=== PATIENT | female | born 1995 | race Caucasian/White ===

== ENCOUNTER 2021-02-15 16:35 | Emergency (ER) | payer OTHER, SELFPAY ==
--- NOTE | ~2021-02-15 | CT_ITS ---
EXAMINATION: CT abdomen pelvis wo con DATE: 02/15/2021 23:17 INDICATION: Abdominal pain. Hematuria. TECHNIQUE: Computed tomography (CT) of the abdomen and pelvis was performed without intravenous contr ast. Automated exposure control and iterative reconstruction technique were employed. The dose-length product was 289.01 mGy-cm. COMPARISON: None. FINDINGS: The visualized portions of the lung bases are clear without pneumonia or pleural effusion. The heart size is normal. No pericardial effusion. The liver, gallbladder, spleen, pancreas, adrenal glands, and kidneys are normal. There is no urolithiasis. There are no dilated loops of bowel. The ap pendix is normal. There are no pathologically enlarged lymph nodes. There is no free intraperitoneal fluid. There is thoracolumbar dextroscoliosis. IMPRESSION: 1. No etiology for the patient's symptoms. Reviewed, dictated and finalized at location A. [employer]
[2021-02-15 16:40] VITALS: BP 118/65; PULSE 83; RESP 18; TEMP 36; O2SAT 99
[2021-02-15 20:57] VITALS: BP 137/92; PULSE 77; RESP 18; O2SAT 98
--- NOTE | 2021-02-15 21:12 | ED.ABDPAIN ---
HPI - Abdominal Pain General Chief Complaint: Abdominal Pain Stated Complaint: ABd pain Time Seen by Provider: 02/15/21 20:53 Source: patient History of Present Illness HPI narrative: Patient presents with upper abdominal pain worsening over the past 2 days. Pain is achy, constant, improved with ibuprofen, no radiation. Reports his symptoms are associated with nausea but no vomiting. She also reports diarrhea over this time. She denies any fevers, chills, cough, congestion. She denies urinary symptoms. She initially went to an urgent care but was referred to the ER for further evaluation, denies recent antibiotics denies any sick contacts denies any recent camping trips Review of Systems Review of Systems: CONSTITUTIONAL: Denies fever, chills, or sweats. EYES: Denies visual changes, redness, or discharge. ENT: Denies rhinorrhea, congestion, sore throat, or otalgia. CARDIOVASCULAR: Denies chest pain, palpitations, or edema. RESPIRATORY: Denies cough or dyspnea. GASTROINTESTINAL: Abdominal pain, nausea, diarrhea GENITOURINARY: Denies dysuria or hematuria. SKIN: Denies rash or itching. MUSCULOSKELETAL: Denies back pain, joint pain, or myalgia. NEUROLOGIC: Denies headache, numbness, dizziness, or weakness. PSYCHIATRIC: Denies anxiety or depression. All systems reviewed & are unremarkable except as noted in HPI and below PMFSH Past Medical History Medical History (Updated 02/16/21 @ 00:09 by Berlin Martinez MD) Patient denies significant medical history Social History Social History (Updated 02/15/21 @ 21:14 by Berlin Martinez MD) Substance use: never Exam Narrative: GENERAL: Well-appearing, well-nourished, and in no acute distress. HEAD: Normocephalic, atraumatic. EYES: PERRLA and EOMI. ENT: Nares clear, no rhinorrhea or epistaxis. Mucous membranes moist. NECK: Supple. No masses. No JVD ABDOMEN: Mild tenderness in the epigastric and left upper quadrant no rebound or guarding soft, nondistended. EXTREMITIES: Normal range of motion. No edema. SKIN: Warm, dry, no rash. NEURO: No focal deficits. Alert and oriented x3. PSYCH: Normal mood and affect. Course Reevaluation(s) Reevaluation #1: Patient is resting comfortably symptoms are improving results and plan reviewed with patient. Patient comfortable outpatient plan. Date: 02/16/21 Time: 00:06 Vital Signs Vital signs: Vital Signs Temperature 36.0 C L 02/15/21 16:40 Pulse Rate 83 02/15/21 16:40 Respiratory Rate 18 02/15/21 16:40 Blood Pressure 118/65 02/15/21 16:40 Pulse Oximetry 99 02/15/21 16:40 Temperature 36.7 C 02/16/21 00:54 Pulse Rate 85 02/16/21 00:54 Respiratory Rate 16 02/16/21 00:54 Blood Pressure 118/81 02/16/21 00:54 Pulse Oximetry 100 02/16/21 00:54 MDM - Abdominal Pain MDM Narrative Medical decision making narrative: H&P as above, vss, pt looks clinically well, exam nonacute abdomen, labs with UA having hematuria, imaging obtained after UA findings to rule out stone, additional labs/img considered, symptomatic relief available as needed, on reevaluation pt continues to looks clinically well. With negative work-up symptoms may represent viral process, dns severe sepsis, severe dehydration, perforation, appendicitis, bowel obstruction. plan to tx/monitor as op w/ pcm f/u findings/plan discussed with pt, pt agree/comfortable with plan, return precautions given Lab Data Result diagrams: 02/15/21 21:21 02/15/21 21:20 Labs: Lab Results 02/15/21 02/15/21 02/15/21 Range/Units 20:59 21:20 21:21 WBC 3.9 L (4.5-10.0) K/mm3 RBC 4.38 (4.2-5.4) M/mm3 Hgb 13.8 (12.0-15.0) g/dL Hct 41.4 (37.0-47.0) % MCV 94.5 (80-100) fl MCH 31.5 (26-34) pg MCHC 33.3 (32-36) g/dl RDW 12.5 (11.5-14.5) % Plt Count 258 (150-375) k/mm3 MPV 9.4 (7.4-10.4) fl Immature Gran % (Auto) 0.3 (0-0.5) % Neut % (Auto) 52.5 (45.5-73.1) % Lymph % (Auto) 34.3 (
[2021-02-15 21:30] LABS: Basophils Percent Auto 0.3 % (0.2-1.2); Hematocrit 41.4 % (37.0-47.0); Hemoglobin 13.8 g/dL (12.0-15.0); Immature Granulocyte Absolute 0.01 K/mm3 (0.00-0.031); Immature Granulocyte Percent A 0.3 % (0-0.5); Lymphocytes Absolute Auto 1.33 K/mm3 (0.9-3.2); Lymphocytes Percent Auto 34.3 % (18.3-44.2); Mean Corpuscular HGB Conc 33.3 g/dl (32-36); Mean Corpuscular Hemoglobin 31.5 pg (26-34); Mean Corpuscular Volume 94.5 fl (80-100); Mean Platelet Volume 9.4 fl (7.4-10.4); Monocytes Absolute Auto 0.5 K/mm3 (0.1-0.6); Monocytes Percent Auto 11.6 % (2.6-8.5); Neutrophils Percent Auto 52.5 % (45.5-73.1); Platelet Count Result 258 k/mm3 (150-375); Red Blood Count 4.38 M/mm3 (4.2-5.4); Red Cell Distribution Width 12.5 % (11.5-14.5); White Blood Count 3.9 K/mm3 (4.5-10.0)
[2021-02-15] MEDS: SODIUM CHLORIDE 0.9% IV 1,000 ML 999 ML IV CONT (21:33)
[2021-02-15 21:39] VITALS: BP 126/75; PULSE 90; RESP 16; O2SAT 98
[2021-02-15 21:45] LABS: Add Urine Microscopic? YES; Appearance Urine Cloudy (Clear); Bilirubin Urine Negative (Negative); Blood Urine 3+ (Negative); Color Urine Yellow (Yellow); Glucose Urine UA Negative (Negative); Ketones Urine 1+ mg/dL (Negative); Leukocyte Esterase Ur Negative LEU/UL (Negative); Mucus Urine Moderate /lpf; Nitrate Urine Negative (Negative); Protein Urine 1+ mg/dL (Negative); RBC Urine >75 /hpf (0-2); Specific Grav Ur 1.027 (1.001-1.035); Squamous Epithelial Cell Urine Moderate /hpf (Few); Urobilinogen Urine Negative mg/dL (<2.0); WBC Urine 0-3 /hpf
[2021-02-15 21:46] LABS: Alanine Aminotransferase 25 U/L (4-35); Albumin Level 4.7 g/dL (3.5-5.1); Alkaline Phosphatase 84 U/L (38-126); Anion Gap 15 mmol/L (8-16); Aspartate Amino Transferase 33 U/L (14-36); Bilirubin,Total 0.7 mg/dL (0.2-1.3); Blood Urea Nitrogen 14 mg/dL (7-17); Calcium 9.6 mg/dL (8.4-10.2); Carbon Dioxide 21 mmol/L (22-30); Chloride 105 mmol/L (98-107); Estimated CRCL calculation 85 ml/min; Estimated Glomerular Filt Rate > 60; Glucose 91 mg/dL (65-110); Lipase 63 U/L (23-300); Potassium 3.8 mmol/L (3.4-5.0); Sodium 141 mmol/L (137-145)
[2021-02-16 00:54] VITALS: BP 118/81; PULSE 85; RESP 16; TEMP 36.7; O2SAT 100
== END 2021-02-16 00:56 | disposition home or self-care (01) ==
PROVIDERS: Emergency Provider Emergency Medicine; PCP Nurse Practitioner
DX: R11.0 Nausea (principal); R10.9 Unspecified abdominal pain
CPT/HCPCS: 36415; 74176; 80053; 81001; 81025; 83690; 85025; 96360; 99284; J7030

== ENCOUNTER 2022-01-21 12:58 | Outpatient (CLI) | payer OTHER, SELFPAY ==
[2022-01-25 14:36] LABS: Progesterone 8.8 ng/mL (***)
== END 2022-01-21 12:59 | disposition home or self-care (01) ==
LOC: ANHLAB 13:01
PROVIDERS: PCP Nurse Practitioner; Visit Provider Obstetrics & Gynecology
DX: N93.9 Abnormal uterine and vaginal bleeding, unspecified (principal); N91.2 Amenorrhea, unspecified
CPT/HCPCS: 36415; 84144; 84702; 86850; 86900; 86901

== ENCOUNTER 2022-01-23 17:28 | Outpatient (CLI) | payer OTHER, SELFPAY | END 2022-01-23 17:29 | disposition home or self-care (01) | LOC: ANHLAB 17:31 | PROVIDERS: PCP Nurse Practitioner; Visit Provider Obstetrics & Gynecology | DX: O26.851 Spotting complicating pregnancy, first trimester (principal); Z3A.00 Weeks of gestation of pregnancy not specified | CPT/HCPCS: 36415; 84702 ==

== ENCOUNTER 2022-01-28 17:41 | Outpatient (CLI) | payer OTHER, SELFPAY ==
--- NOTE | ~2022-01-28 | US_ITS ---
EXAMINATION: US OB <=14 wk fetus w TV DATE: 01/28/2022 18:35 INDICATION: Spotting during first trimester TECHNIQUE: Real-time pelvic transabdominal and transvaginal ultrasound was performed. COMPARISON: None. FINDINGS: The uterus measures 8.7 x 4.8 x 6.0 cm. There is an intrauterine gestational sac. A yolk s ac is identified. There is a questionable 4 mm pole.The mean sac diameter measures 2.5 cm, whic h correlates with an estimated gestational age of 7 weeks and 4 day(s) (+/-) 5 day(s). The right ovary measures 3.6 x 2.0 x 2.8 cm. The left ovary measures 3.2 x 2.0 x 2.0 cm. There is nor mal vascular flow in the ovaries. There is no free fluid in the pelvis. IMPRESSION: 1. Intrauterine gestational sac and yolk sac and a possible small pole with an estimated gestat ional age of 7 weeks and 4 day(s) (+/-) 5 day(s) and an estimated delivery date of 09/12/2022 based on mean sac diameter. Reviewed, dictated and finalized at location F. [employer] EXPERT IMPRESSION: 1. Intrauterine gestational sac and yolk sac and a possible small pole wi th an estimated gestational age of 7 weeks and 4 day(s) (+/-) 5 day(s) and an e stimated delivery date of 09/12/2022 based on mean sac diameter.
== END 2022-01-28 17:42 | disposition home or self-care (01) ==
LOC: ANHIMG 17:43
PROVIDERS: PCP Nurse Practitioner; Visit Provider Obstetrics & Gynecology
DX: O26.851 Spotting complicating pregnancy, first trimester (principal); Z3A.01 Less than 8 weeks gestation of pregnancy
CPT/HCPCS: 76801; 76817

== ENCOUNTER → 2022-02-11 13:05 | Outpatient (CLI) | payer OTHER, SELFPAY ==
--- NOTE | ~2022-02-11 | US_ITS ---
US OB <=14 wk fetus w TV 02/11/2022 13:36 Indication: Vaginal spotting. Procedure: High-resolution Limited obstetrical ultrasound utilizing transabdominal and transvaginal t echnique Comparison: Ultrasound dated 01/28/2022 Findings: Uterus measures 9.5 x 6.2 x 6.8 cm. There is an intrauterine gestational sac with which con tains an internal septation and a small echogenic focus along the septation. No definitive yolk sac o r pole are seen. No heart motions detected. Right ovary measures 3.3 x 2.3 x 2.4 cm. Left ovary measures 3 x 1.9 x 2.5 cm. Impression: 1: Intrauterine gestational sac without definite pole or yolk sac, most likely blighted ovum/fa iled . Recommend follow-up with serial quantitative beta-hCG levels and ultrasound as clinic ally indicated. Reviewed, dictated and finalized at location A. [employer]MER Impression: 1: Intrauterine gestational sac without definite pole or yolk sac, most l ikely blighted ovum/failed . Recommend follow-up with serial quantitat rhianna beta-hCG levels and ultrasound as clinically indicated.
== END ==
PROVIDERS: PCP Obstetrics & Gynecology; Visit Provider Obstetrics & Gynecology
DX: O26.851 Spotting complicating pregnancy, first trimester (principal)
CPT/HCPCS: 76801; 76817

== ENCOUNTER 2022-02-27 10:15 | Outpatient (CLI) | payer OTHER, SELFPAY | END 2022-02-27 10:16 | disposition home or self-care (01) | LOC: ANHLAB 10:18 | PROVIDERS: PCP Obstetrics & Gynecology; Visit Provider Obstetrics & Gynecology | DX: O02.1 Missed abortion (principal); Z3A.00 Weeks of gestation of pregnancy not specified | CPT/HCPCS: 36415; 84702 ==

== ENCOUNTER 2022-03-13 12:55 | Outpatient (CLI) | payer OTHER, SELFPAY ==
[2022-03-13 14:01] LABS: Beta HCG Quantitative 31.27 mIU/ML
== END 2022-03-13 12:56 | disposition home or self-care (01) ==
LOC: ANHLAB 12:57
PROVIDERS: PCP Obstetrics & Gynecology; Visit Provider Obstetrics & Gynecology
DX: O03.9 Complete or unspecified spontaneous abortion without complication (principal)
CPT/HCPCS: 36415; 84702

== ENCOUNTER 2022-03-26 15:15 | Outpatient (CLI) | payer OTHER, SELFPAY ==
[2022-03-26 16:21] LABS: Beta HCG Quantitative 11.36 mIU/ML
== END 2022-03-26 15:16 | disposition home or self-care (01) ==
LOC: ANHLAB 15:18
PROVIDERS: PCP Obstetrics & Gynecology; Visit Provider Obstetrics & Gynecology
DX: O02.1 Missed abortion (principal); Z3A.00 Weeks of gestation of pregnancy not specified
CPT/HCPCS: 36415; 84702

== ENCOUNTER 2022-04-08 17:19 | Outpatient (CLI) | payer OTHER, SELFPAY ==
[2022-04-08 17:56] LABS: Beta HCG Quantitative 6.03 mIU/ML
== END 2022-04-08 17:20 | disposition home or self-care (01) ==
LOC: ANHLAB 17:21
PROVIDERS: PCP Obstetrics & Gynecology; Visit Provider Obstetrics & Gynecology
DX: O02.1 Missed abortion (principal)
CPT/HCPCS: 36415; 84702

== ENCOUNTER 2022-04-22 15:48 | Outpatient (CLI) | payer OTHER, SELFPAY ==
[2022-04-22 16:48] LABS: Beta HCG Quantitative 2.85 mIU/ML
== END 2022-04-22 15:49 | disposition home or self-care (01) ==
LOC: ANHLAB 15:50
PROVIDERS: PCP Obstetrics & Gynecology; Visit Provider Obstetrics & Gynecology
DX: O02.1 Missed abortion (principal)
CPT/HCPCS: 36415; 84702

== ENCOUNTER 2022-09-01 13:11 | Outpatient (CLI) | payer OTHER, SELFPAY ==
--- NOTE | ~2022-09-01 | US_ITS ---
EXAMINATION: US OB /maternal detail DATE: 09/01/2022 13:45 INDICATION: survey TECHNIQUE: Multiple obstetric sonographic images performed. FINDINGS: No prior studies for comparison. There is a single living fetus in variable presentation. The placenta is anterior without placenta p revia. Placental margin to the cervix is 6 cm. Amniotic fluid volume is subjectively normal. Cervical length is 3.3 cm. cardiac activity and movement is noted with a heart rate of 149 beats per minute. The following anatomy was identified as normal: 4 chamber heart 3 vessel cord cord insertion kidneys urinary bladder stomach spine diaphragm ventricles cisterna magna cerebellum The following biometric data were obtained: BPD: 46mm corresponds to gestational age 19 weeks 6 days. Head circumference: 171 mm corresponds to gestational age 19 weeks 5 days. Abdominal circumference: 138 mm corresponds to gestational age 19 weeks 1 days. Femur length: 29 mm corresponds to gestational age 18 weeks 5 days. Head circumference to abdominal circumference ratio: 1.24 (normal range for expected gestational age is 1.08-1.26). Estimated weight: 273 grams +/- 41 grams using Hadlock method, 42.2%. IMPRESSION: 1: Single living intrauterine with an estimated gestational age of 19weeks 3days by current ultrasound measurements, with an EDC of 01/23/2023 in variable presentation. 2. Normal survey. Reviewed, dictated and finalized at location [] IMPRESSION: 1: Single living intrauterine with an estimated gestational age of 19 weeks 3days by current ultrasound measurements, with an EDC of 01/23/2023 in va riable presentation. 2. Normal survey.
== END 2022-09-01 13:12 ==
LOC: MICIMG 13:12
PROVIDERS: PCP Obstetrics & Gynecology Gynecologic Oncology; Visit Provider Obstetrics & Gynecology Gynecologic Oncology
DX: Z36.9 Encounter for antenatal screening, unspecified (principal)
CPT/HCPCS: 76805